=== PATIENT | male | born 1965 | race Caucasian/White ===

== ENCOUNTER 2021-03-29 17:09 | Emergency (ER) | payer OTHER ==
[2021-03-29 17:34] VITALS: O2SAT 98
--- NOTE | 2021-03-29 18:09 | ERPHSYRPT ---
- History of Present Illness Patient Subjective Stated Complaint: pt reports a knot on the back of his right upper thigh since the end of January. pt states that today he hit it on the couch and then noticed blood running down the back of his leg, pt states he then applied gentle pressure and dark blood shot 3 feet across the room. pt has been doing general wound care to the area daily. Triage Nursing Assessment: pt is aox3, pupils perrl, afebrile, resps easy and non labored, cap refill < 3 seconds, pt skin pink warm dry. reddened area with a darker center approx 4cm x 3.5cm to the posterior right upper thigh, no drainage noted. Timing/Duration: week(s) (6) Quality: painful Severity: moderate Location: extremities (Posterior aspect right thigh distally) Associated Symptoms: denies symptoms Hx Tetanus, Diphtheria Vaccination/Date Given: Yes Hx Influenza Vaccination/Date Given: Yes Hx Pneumococcal Vaccination/Date Given: No Immunizations Up to Date: Yes <BANDAR FRANZ - Last Filed: 03/29/21 19:12> <TANA LAUREANO - Last Filed: 03/29/21 21:30> - History of Present Illness Time Seen by Provider: 03/29/21 17:35 Physician History: Patient is a 55-year-old male who reports that approximately 6 weeks ago he noted a nodular area underneath the skin on the posterior aspect of the right thigh it was somewhat tender a week or so ago it began to have a black eschar and became more tender and enlarged today he had bleeding from it and when he pressed on the area had blood shoot across the room practically. It is tender it is sore it is enlarging. Should be noted that he has a history of willian coidosis. (BANDAR FRANZ) Allergies/Adverse Reactions: No Known Drug Allergies Allergy (Unverified 03/29/21 17:34) Travel Risk - International Travel Have you traveled outside of the country in past 3 weeks: No - Coronavirus Screening Are you exhibiting any of the following symptoms?: No Close contact with a COVID-19 positive Pt in past 14-21 Days: No - Vaccine Status Have you recieved a Covid-19 vaccination: No <BANDAR FRANZ - Last Filed: 03/29/21 19:12> - Review of Systems Constitutional: No Fever, No Chills Eyes: No Symptoms Ears, Nose, & Throat: No Symptoms Respiratory: No Cough, No Dyspnea Cardiac: No Chest Pain, No Edema, No Syncope Abdominal/Gastrointestinal: No Abdominal Pain, No Nausea, No Vomiting, No Diarrhea Genitourinary Symptoms: No Dysuria Musculoskeletal: No Back Pain, No Neck Pain Skin: Other (Suspected abscess), No Rash Neurological: No Dizziness, No Focal Weakness, No Sensory Changes Psychological: No Symptoms Endocrine: No Symptoms All Other Systems: Reviewed and Negative <BANDAR FRANZ Filed: 03/29/21 19:12> - Past Medical History Cardiac History: Hypertension Other Medical History: sarcoidosis - Past Surgical History Gastrointestinal: Cholecystectomy, Pancreatic Surgery Other Surgical History: NISAN procedure - Social History Smoking Status: Never smoker Drug Use: none Patient Lives Alone: No <BANDAR FRANZ Filed: 03/29/21 19:12> - Physical Exam General Appearance: mild distress Eye Exam: PERRL/EOMI, eyes nml inspection Ears, Nose, Throat Exam: normal ENT inspection, pharynx normal, moist mucous membranes Neck Exam: normal inspection, non-tender, supple, full range of motion Respiratory Exam: normal breath sounds Cardiovascular Exam: regular rate/rhythm, normal heart sounds Gastrointestinal/Abdomen Exam: soft, mass, No tenderness Back Exam: normal inspection, normal range of motion, No CVA tenderness, No vertebral tenderness Neurologic Exam: alert, oriented x 3 Skin Exam: other (There is a area on the posterior aspect distally of the right thigh which measures approximately 4 cm in diameter of induration with a central area a area of some black eschar with blood being expressed.) SpO2 Interpretation: normal SpO2: 98 O2 Delivery: Room Air <BANDAR FRANZ Filed: 03/29/21 19:12> - Nursing Vital Signs Nursing Vital Signs: Initial Vital Signs Temperature 98.0 F 03/29/21 17:16 Pulse Rate 85 03/29/21 17:16 Respiratory Rate 18 03/29/21 17:16 Blood Pressure 136/91 03/29/21 17:16 O2 Sat by Pulse Oximetry 98 03/29/21 17:16 Pain Scale Pain Intensity 5 - Course Nursing assessment & vital signs reviewed: Yes <MARIA MBANDAR Last Filed: 03/29/21 19:12> Ordered Tests: Active Orders 24 hr Category Date Time Status LOWER EXTREMITY WO CONTRAST [CT] Stat Exams 03/29/21 17:57 Taken CBC W DIFF Stat Lab 03/29/21 18:18 Completed CMP Stat Lab 03/29/21 18:18 Completed CULTURE,WOUND Stat Lab 03/29/21 21:23 Ordered Medication Summary Discontinued Medications Generic Name Dose Route Start Last Admin Trade Name Isaiahq PRN Reason Stop Dose Admin Ceftriaxone Sodium 1,000 mg 03/29/21 21:21 Rocephin 1000 Mg Inj IM 03/29/21 21:22 STAT ONE Trimethoprim/Sulfamethoxazole 1 tab 03/29/21 21:21 Bactrim Ds Tablet PO 03/29/21 21:22 STAT ONE Lab/Rad Data: Laboratory Result Diagrams 03/29/21 18:18 03/29/21 18:18 Laboratory Results 03/29/21 03/29/21 Range/Units 18:18 18:18 WBC 6.9 (4.0-10.5) K/mm3 RBC 4.43 (4.1-5.6) M/mm3 Hgb 13.8 (12.5-18.0) gm/dl Hct 39.8 L (42-50) % MCV 89.8 (78-100) fl MCH 31.2 (26-32) pg MCHC 34.7 (32-36) g/dl RDW 14.9 H (11.5-14.0) % Plt Count 158 (150-450) K/mm3 MPV 8.4 (7.5-11.0) fl Gran % 76.4 H (36.0-66.0) % Eos # (Auto) 0.19 (0-0.5) Absolute Lymphs (auto) 0.63 L (1.0-4.6) Absolute Monos (auto) 0.78 (0.0-1.3) Lymphocytes % 9.2 L (24.0-44.0) % Monocytes % 11.3 (0.0-12.0) % Eosinophils % 2.8 (0.00-5.0) % Basophils % 0.3 (0.0-0.4) % Absolute Granulocytes 5.26 (1.4-6.9) Basophils # 0.02 (0-0.4) Sodium 140 (137-145) mmol/L Potassium 4.4 (3.5-5.1) mmol/L Chloride 101 (98-107) mmol/L Carbon Dioxide 28 (22-30) mmol/L Anion Gap 15.0 (5-15) MEQ/L BUN 17 (9-20) mg/dL Creatinine 1.50 H (0.66-1.25) mg/dL Estimated GFR 51.8 ML/MIN Glucose 93 (74-106) mg/dL Calcium 10.1 (8.4-10.2) mg/dL Total Bilirubin 1.00 (0.2-1.3) mg/dL AST 38 (17-59) U/L ALT 37 (0-50) U/L Alkaline Phosphatase 70 (38-126) U/L Serum Total Protein 8.4 H (6.3-8.2) g/dL Albumin 4.8 (3.5-5.0) g/dL - Progress Progress: improved, pain not gone completely, re-examined Counseled pt/family regarding: lab results, diagnosis, need for follow-up, rad results <TANA LAUREANO - Last Filed: 03/29/21 21:30> - Progress Progress Note: 03/29/21 21:24 CAT scan of the right lower extremity without contrast shows mild subcutaneous e manjit no well-defined drainable subcutaneous abscess. Findings consistent with cellulitis (TANA LAUREANO) - Departure Departure Disposition: Home <BANDAR FRANZ - Last Filed: 03/29/21 19:12> - Departure Departure Disposition: Home Critical Care Time: No <TANA LAUREANO - Last Filed: 03/29/21 21:30> - Departure Clinical Impression: Cellulitis of right leg Condition: Stable Referrals: DOCTOR,NO FAMILY [Primary Care Provider] - Additional Instructions: Keep site clean daily with soap and water. Do not use ointments lotions or creams. May use sitz bath's twice a day with warm soapy water or warm Epson salt water. After washing dry the area and cover with bandage daily. Take your medication as prescribed. Follow-up with your primary care physician for further management. Prescriptions: Smz/Tmp Ds Tablet [Bactrim Ds Tablet] 1 udtab PO BID #14 tablet
[2021-03-29 18:21] LABS: Absolute Neutrophil Ct (ANC) 5.26 (1.4-6.9); BASOPHIL % 0.3 % (0.0-0.4); Basophil (Absolute #) 0.02 (0-0.4); Eosinophil % 2.8 % (0.00-5.0); Eosinophil (Absolute #) 0.19 (0-0.5); Hematocrit 39.8 % (42-50); Hemoglobin 13.8 gm/dl (12.5-18.0); Lymphocyte (Absolute #) 0.63 (1.0-4.6); Lymphocytes % 9.2 % (24.0-44.0); Mean Cell Volume 89.8 fl (78-100); Mean Corpuscular Hemoglobin 31.2 pg (26-32); Mean Corpuscular Hgb Concent. 34.7 g/dl (32-36); Mean Platelet Volume 8.4 fl (7.5-11.0); Monocyte (Absolute #) 0.78 (0.0-1.3); Monocytes % 11.3 % (0.0-12.0); Neutrophil % 76.4 % (36.0-66.0); Platelet Count 158 K/mm3 (150-450); Red Blood Count 4.43 M/mm3 (4.1-5.6); Red Cell Distribution Width 14.9 % (11.5-14.0); White Blood Count 6.9 K/mm3 (4.0-10.5)
[2021-03-29 18:32] LABS: ALBUMIN 4.8 g/dL (3.5-5.0); Calcium 10.1 mg/dL (8.4-10.2); Creatinine 1 1.5 mg/dL (0.66-1.25); EST GLOMERULAR FILTRATION RATE 51.8 ML/MIN; Potassium 4.4 mmol/L (3.5-5.1); Total Protein 8.4 g/dL (6.3-8.2)
[2021-03-29 20:56] VITALS: BP 127/86; PULSE 74
[2021-03-29] MEDS ORDERED: BACTRIM DS TABLET PO ONE ×2 (21:21→21:52)
[2021-03-29] MEDS ORDERED: Rocephin 1000 MG INJ IM ONE (21:21)
[2021-03-29] MEDS ORDERED: Rocephin 1000 MG INJ ONE (21:52)
[2021-03-29] MEDS ORDERED: XYLOCAINE 2% HCL 20 ML MDV ONE (21:52)
--- NOTE | 2021-03-30 06:43 | XRAY ---
Indication: Posterior lower femur abscess 3 weeks. Multiple contiguous axial images obtained through the right femur without contrast to include the hip and knee joint. Sagittal and coronal reformatted images obtained. Cutaneous BB placed over region of interest. Comparison: None Posterior cutaneous BB is seen distally just above the knee where there is underlying cutaneous/subcutaneous induration favoring cellulitis. No focal walled off fluid collection or subcutaneous emphysema. Remaining noncontrasted soft tissues including visualized pelvic contents are unremarkable. Major arteries and veins are normal in course and caliber. Osseous structures intact without suspicious bony lesions or osseous destructive process. Right hip and right knee intact without large effusion. Impression: Small focus of cellulitis involving the posterior distal leg. No underlying focal abscess. Comment: Preliminary interpretation was made by [facility]. No critical discrepancy.
== END 2021-03-29 22:17 | disposition home or self-care (01) ==
LOC: ED 17:09
DX: L03.115 Cellulitis of right lower limb (principal); I10 Essential (primary) hypertension
CPT/HCPCS: 36415; 73700; 80053; 85025; 87070; 96372; 99284; J0696; A9270-GY

== ENCOUNTER 2022-04-09 14:34 | Emergency (ER) | payer OTHER ==
[2022-04-09 16:16] LABS: Absolute Neutrophil Ct (ANC) 2.49 x10^3/uL (1.4-6.9); Basophil (Absolute #) 0.02 x10^3/uL (0-0.4); Eosinophil % 0.6 % (0.00-5.0); Eosinophil (Absolute #) 0.02 x10^3/uL (0-0.5); Hematocrit 41.3 % (42-50); Lymphocyte (Absolute #) 0.15 x10^3/uL (1.0-4.6); Lymphocytes % 4.7 % (24.0-44.0); Mean Cell Volume 91.8 fL (78-100); Mean Corpuscular Hemoglobin 31.1 pg (26-32); Mean Corpuscular Hgb Concent. 33.9 g/dL (32-36); Monocyte (Absolute #) 0.51 x10^3/uL (0.0-1.3); Monocytes % 15.9 % (0.0-12.0); Neutrophil % 77.6 % (36.0-66.0); Platelet Count 124 x10^3/uL (150-450); Red Cell Distribution Width 14.6 % (11.5-14.0); White Blood Count 3.2 x10^3/uL (4.0-10.5)
--- NOTE | 2022-04-09 16:26 | XRAY ---
Indication: Fever, cough, short of breath, and headache. Positive Covid 19. Comparison: None Portable chest demonstrates minimal inferior right upper lobe discoid atelectasis/scarring. Remaining heart and lungs unremarkable. Bony thorax intact with mild degenerative changes.
[2022-04-09 16:27] LABS: ALBUMIN 4.8 g/dL (3.5-5.0); ANION GAP 16.6 MEQ/L (5-15); BILIRUBIN,TOTAL 1.7 mg/dL (0.2-1.3); Calcium 9.8 mg/dL (8.4-10.2); Creatinine 1 1.89 mg/dL (0.66-1.25); EST GLOMERULAR FILTRATION RATE 39.6 ML/MIN; Potassium 4.3 mmol/L (3.5-5.1); Total Protein 8.5 g/dL (6.3-8.2)
[2022-04-09 16:29] LABS: INFLUENZA A NEGATIVE (NEGATIVE); INFLUENZA B NEGATIVE (NEGATIVE); RESPIRATORY SYNCTIAL VIRUS NEGATIVE (Negative)
[2022-04-09 16:45] LABS: SARS-CoV-2 Xpert Express POSITIVE (NEGATIVE)
[2022-04-09 16:56] LABS: Appearance CLEAR (CLEAR)
[2022-04-09 16:57] LABS: Bilirubin NEGATIVE (NEGATIVE); Dipstick done @ ? MAIN LAB; Glucose NEGATIVE (NEGATIVE); Ketones SMALL-15 (NEGATIVE); Nitrite NEGATIVE (NEGATIVE); Ph 5.5 (5-6); Protein,Urine Dip 100 (Negative); RBC NEGATIVE Ery/ul (0-5); Specific Gravity >=1.030 (1.005-1.025); Urobilinogen 1 mg/dL (0-1)
[2022-04-09] MEDS ORDERED: Sodium Chloride 0.9% 1000 ML 1,000 ML IV STA (17:03)
[2022-04-09 17:06] LABS: Hyaline Casts 0-2 /LPF (0-2); Mucus SLIGHT /HPF (NEGATIVE); RBC 0-2 /HPF (0-2); WBC 0-2 /HPF (0-5)
[2022-04-09] MEDS ORDERED: Sodium Chloride 0.9% 1000 ML 1,000 ML ONE (17:06)
[2022-04-09] MEDS ORDERED: Vibramycin 100 MG PO ONE (17:24)
[2022-04-09] MEDS ORDERED: Vibramycin 100 MG ONE (17:33)
[2022-04-09 17:59] LABS: Urine Cultured Indicated? NO
[2022-04-09 18:24] VITALS: BP 129/85; PULSE 89; O2SAT 96
[2022-04-09] MEDS ORDERED: Decadron 4 MG INJ IV ONE (18:36)
--- NOTE | 2022-04-09 18:43 | ERPHSYRPT ---
- History of Present Illness Time Seen by Provider: 04/09/22 14:37 Source: patient Exam Limitations: no limitations Patient Subjective Stated Complaint: Pt states "I have covid. I have had a high fever, I do not feel well, my throat is killing me." Triage Nursing Assessment: PT presented alert and oriented X 3, skin wpd pt ambulates with an upright steady gait, able to speak in clear full sentences pt in no apaprent respiratory distress. Physician History: 56-year-old male with history of sarcoidosis in the past currently not on any medication, CKD presented in the ER with chief complaint of flulike symptoms for the last 3 to 4 days, was tested positive for COVID-19 last night. Patient reports having a fever with chills with a T-max of 104 yesterday, responding to Tylenol. Also report dry to wet cough with soreness all over the chest, sore throat, congestion and generalized body aches along with fatigue tiredness and lack of energy. Denies any difficulty breathing. Mild nausea occasionally but no vomiting or diarrhea reported. Timing/Duration: day(s) (3), gradual onset, worse Cough Quality/Degree: moderate, dry cough Modifying Factors: Worsens With: coughing Associated Symptoms: fever, chills, chest pain/soreness, cough, headache, muscle aches, nasal congestion, nasal drainage, sore throat Allergies/Adverse Reactions: No Known Drug Allergies Allergy (Verified 04/09/22 14:45) Hx Tetanus, Diphtheria Vaccination/Date Given: Yes Hx Influenza Vaccination/Date Given: Yes Hx Pneumococcal Vaccination/Date Given: No Immunizations Up to Date: Yes Travel Risk - International Travel Have you traveled outside of the country in past 3 weeks: No - Coronavirus Screening Are you exhibiting any of the following symptoms?: Yes Symptoms: Fever, Cough: New Onset Close contact with a COVID-19 positive Pt in past 14-21 Days: Yes - Vaccine Status Have you recieved a Covid-19 vaccination: No - Review of Systems Constitutional: Fever, Chills, Fatigue, Weakness Eyes: No Symptoms Ears, Nose, & Throat: Nose Congestion, Throat Pain, Throat Swelling Respiratory: Cough Cardiac: No Edema, No Palpitations Abdominal/Gastrointestinal: Nausea Genitourinary Symptoms: No Symptoms Musculoskeletal: Myalgias Skin: No Symptoms Neurological: Headache Psychological: No Symptoms Hematologic/Lymphatic: No Symptoms Immunological/Allergic: No Symptoms - Past Medical History Pertinent Past Medical History: Yes Cardiac History: Hypertension Other Medical History: sarcoidosis - Past Surgical History Past Surgical History: Yes Gastrointestinal: Cholecystectomy, Pancreatic Surgery Other Surgical History: NISAN procedure - Social History Smoking Status: Never smoker Exposure to second hand smoke: No Drug Use: none Patient Lives Alone: No - Nursing Vital Signs Nursing Vital Signs: Initial Vital Signs Temperature 98.3 F 04/09/22 14:39 Pulse Rate 105 H 04/09/22 14:39 Respiratory Rate 22 04/09/22 14:39 Blood Pressure 134/89 04/09/22 14:39 O2 Sat by Pulse Oximetry 97 04/09/22 14:39 Pain Scale Pain Intensity 6 - Physical Exam General Appearance: no apparent distress Eye Exam: PERRL/EOMI, eyes nml inspection Ears, Nose, Throat Exam: moist mucous membranes, pharyngeal erythema Neck Exam: normal inspection, non-tender, supple, full range of motion Respiratory Exam: normal breath sounds, lungs clear Cardiovascular Exam: normal heart sounds, tachycardia Gastrointestinal/Abdomen Exam: soft, normal bowel sounds, No tenderness Back Exam: normal inspection, normal range of motion Extremity Exam: normal inspection, normal range of motion, pelvis stable Neurologic Exam: alert, oriented x 3, cooperative, tax adjuster II-XII nml as tested Skin Exam: normal color SpO2 Interpretation: normal SpO2: 96 O2 Delivery: Room Air Ordered Tests: Active Orders 24 hr Category Date Time Status Placement Secretary STAT Care 04/09/22 15:11 Active CHEST 1 VIEW (PORTABLE) Stat Exams 04/09/22 15:11 Completed BLOOD CULTURE Stat Lab 04/09/22 15:41 Received CBC W DIFF Stat Lab 04/09/22 15:30 Completed CMP Stat Lab 04/09/22 15:30 Completed Lactic Acid Stat Lab 04/09/22 15:50 Completed PROCALCITONIN Stat Lab 04/09/22 15:41 Completed TROPONIN Q3H Lab 04/09/22 15:15 Completed TROPONIN Q3H Lab 04/09/22 18:15 Ordered TROPONIN Q3H Lab 04/09/22 21:15 Ordered TROPONIN Q3H Lab 04/10/22 00:15 Ordered UA W/RFX CULTURE Stat Lab 04/09/22 16:50 Completed Medication Summary Discontinued Medications Generic Name Dose Route Start Last Admin Trade Name Freq PRN Reason Stop Dose Admin Dexamethasone Sodium Phosphate 8 mg 04/09/22 18:36 Dexamethasone Sod Phosphate 4 Mg/Ml Ml IV 04/09/22 18:37 STAT ONE Doxycycline Hyclate 100 mg 04/09/22 17:24 04/09/22 17:33 Doxycycline Hyclate 100 Mg Tablet PO 04/09/22 17:25 100 mg STAT ONE Administration Doxycycline Hyclate Confirm 04/09/22 17:33 Doxycycline Hyclate 100 Mg Tablet Administered 04/09/22 17:34 Dose 100 mg .ROUTE .STK-MED ONE Sodium Chloride 1,000 mls @ 999 mls/hr 04/09/22 17:03 04/09/22 18:19 Sodium Chloride 0.9% 1000 Ml IV 04/09/22 18:03 Infused .Q1H1M STA Infusion Sodium Chloride Confirm 04/09/22 17:06 Sodium Chloride 0.9% 1000 Ml Administered 04/09/22 17:07 Dose 1,000 mls @ ud .ROUTE .STK-MED ONE Lab/Rad Data: Laboratory Result Diagrams 04/09/22 15:30 04/09/22 15:30 Laboratory Results 04/09/22 04/09/22 04/09/22 Range/Units 16:50 15:50 15:41 WBC (4.0-10.5) x10^3/uL RBC (4.1-5.6) x10^6/uL Hgb (12.5-18.0) g/dL Hct (42-50) % MCV (78-100) fL MCH (26-32) pg MCHC (32-36) g/dL RDW (11.5-14.0) % Plt Count (150-450) x10^3/uL MPV (7.5-11.0) fL Gran % (36.0-66.0) % Immature Gran % (Auto) (0.00-0.4) % Nucleat RBC Rel Count (0.00-0.1) % Eos # (Auto) (0-0.5) x10^3/uL Immature Gran # (Auto) (0.00-0.03) x10^3u/L Absolute Lymphs (auto) (1.0-4.6) x10^3/uL Absolute Monos (auto) (0.0-1.3) x10^3/uL Absolute Nucleated RBC (0.00-0.01) x10^3u/L Lymphocytes % (24.0-44.0) % Monocytes % (0.0-12.0) % Eosinophils % (0.00-5.0) % Basophils % (0.0-0.4) % Absolute Granulocytes (1.4-6.9) x10^3/uL Basophils # (0-0.4) x10^3/uL Sodium (137-145) mmol/L Potassium (3.5-5.1) mmol/L Chloride (98-107) mmol/L Carbon Dioxide (22-30) mmol/L Anion Gap (5-15) MEQ/L BUN (9-20) mg/dL Creatinine (0.66-1.25) mg/dL Estimated GFR ML/MIN Glucose (74-106) mg/dL Lactic Acid 1.5 (0.4-2.0) Calcium (8.4-10.2) mg/dL Total Bilirubin (0.2-1.3) mg/dL AST (17-59) U/L ALT (0-50) U/L Alkaline Phosphatase (38-126) U/L Troponin I (0.000-0.034) ng/mL Serum Total Protein (6.3-8.2) g/dL Albumin (3.5-5.0) g/dL Procalcitonin 0.419 H (0.030-0.080) ng/mL Urinalys Dipstick Clnc MAIN LAB Urine Color DARK YELLOW (YELLOW) Urine Appearance CLEAR (CLEAR) Urine pH 5.5 (5-6) Ur Specific [place] >=1.030 (1.005-1.025) POC Urine Protein Conf 100 (Negative) Urine Ketones SMALL-15 (NEGATIVE) Urine Nitrite NEGATIVE (NEGATIVE) Urine Bilirubin NEGATIVE (NEGATIVE) Urine Urobilinogen 1 (0-1) mg/dL Urine Leukocytes NEGATIVE (NEGATIVE) Urine WBC (Auto) 0-2 (0-5) /HPF Urine RBC (Auto) 0-2 (0-2) /HPF U Hyaline Cast (Auto) 0-2 (0-2) /LPF U Epithel Cells (Auto) Not Reportable Urine Bacteria (Auto) NONE (NEGATIVE) /HPF Urine RBC NEGATIVE (0-5) Ari/ul Urine Mucus (Auto) SLIGHT (NEGATIVE) /HPF Ur Culture Indicated? NO Urine Glucose NEGATIVE (NEGATIVE) mg/dL Influenza Type A Ag (NEGATIVE) Influenza Type B Ag (NEGATIVE) RSV (PCR) (Negative) SARS-CoV-2 (PCR) (NEGATIVE) 04/09/22 04/09/22 04/09/22 Range/Units 15:30 15:30 15:30 WBC 3.2 L (4.0-10.5) x10^3/uL RBC 4.50 (4.1-5.6) x10^6/uL Hgb 14.0 (12.5-18.0) g/dL Hct 41.3 L (42-50) % MCV 91.8 (78-100) fL MCH 31.1 (26-32) pg MCHC 33.9 (32-36) g/dL RDW 14.6 H (11.5-14.0) % Plt Count 124 L (150-450) x10^3/uL MPV 9.0 (7.5-11.0) fL Gran % 77.6 H (36.0-66.0) % Immature Gran % (Auto) 0.6 H (0.00-0.4) % Nucleat RBC Rel Count 0.0 (0.00-0.1) % Eos # (Auto) 0.02 (0-0.5) x10^3/uL Immature Gran # (Auto) 0.02 (0.00-0.03) x10^3u/L Absolute Lymphs (auto) 0.15 L (1.0-4.6) x10^3/uL Absolute Monos (auto) 0.51 (0.0-1.3) x10^3/uL Absolute Nucleated RBC 0.00 (0.00-0.01) x10^3u/L Lymphocytes % 4.7 L (24.0-44.0) % Monocytes % 15.9 H (0.0-12.0) % Eosinophils % 0.6 (0.00-5.0) % Basophils % 0.6 (0.0-0.4) % Absolute Granulocytes 2.49 (1.4-6.9) x10^3/uL Basophils # 0.02 (0-0.4) x10^3/uL Sodium 139 (137-145) mmol/L Potassium 4.3 (3.5-5.1) mmol/L Chloride 101 (98-107) mmol/L Carbon Dioxide 26 (22-30) mmol/L Anion Gap 16.6 H (5-15) MEQ/L BUN 21 H (9-20) mg/dL Creatinine 1.89 H (0.66-1.25) mg/dL Estimated GFR 39.6 ML/MIN Glucose 91 (74-106) mg/dL Lactic Acid (0.4-2.0) Calcium 9.8 (8.4-10.2) mg/dL Total Bilirubin 1.70 H (0.2-1.3) mg/dL AST 48 (17-59) U/L ALT 42 (0-50) U/L Alkaline Phosphatase 76 (38-126) U/L Troponin I (0.000-0.034) ng/mL Serum Total Protein 8.5 H (6.3-8.2) g/dL Albumin 4.8 (3.5-5.0) g/dL Procalcitonin (0.030-0.080) ng/mL Urinalys Dipstick Clnc Urine Color (YELLOW) Urine Appearance (CLEAR) Urine pH (5-6) Ur Specific [place] (1.005-1.025) POC Urine Protein Conf (Negative) Urine Ketones (NEGATIVE) Urine Nitrite (NEGATIVE) Urine Bilirubin (NEGATIVE) Urine Urobilinogen (0-1) mg/dL Urine Leukocytes (NEGATIVE) Urine WBC (Auto) (0-5) /HPF Urine RBC (Auto) (0-2) /HPF U Hyaline Cast (Auto) (0-2) /LPF U Epithel Cells (Auto) Urine Bacteria (Auto) (NEGATIVE) /HPF Urine RBC (0-5) Ari/ul Urine Mucus (Auto) (NEGATIVE) /HPF Ur Culture Indicated? Urine Glucose (NEGATIVE) mg/dL Influenza Type A Ag NEGATIVE (NEGATIVE) Influenza Type B Ag NEGATIVE (NEGATIVE) RSV (PCR) NEGATIVE (Negative) SARS-CoV-2 (PCR) POSITIVE A (NEGATIVE) 04/09/22 Range/Units 15:15 WBC (4.0-10.5) x10^3/uL RBC (4.1-5.6) x10^6/uL Hgb (12.5-18.0) g/dL Hct (42-50) % MCV (78-100) fL MCH (26-32) pg MCHC (32-36) g/dL RDW (11.5-14.0) % Plt Count (150-450) x10^3/uL MPV (7.5-11.0) fL Gran % (36.0-66.0) % Immature Gran % (Auto) (0.00-0.4) % Nucleat RBC Rel Count (0.00-0.1) % Eos # (Auto) (0-0.5) x10^3/uL Immature Gran # (Auto) (0.00-0.03) x10^3u/L Absolute Lymphs (auto) (1.0-4.6) x10^3/uL Absolute Monos (auto) (0.0-1.3) x10^3/uL Absolute Nucleated RBC (0.00-0.01) x10^3u/L Lymphocytes % (24.0-44.0) % Monocytes % (0.0-12.0) % Eosinophils % (0.00-5.0) % Basophils % (0.0-0.4) % Absolute Granulocytes (1.4-6.9) x10^3/uL Basophils # (0-0.4) x10^3/uL Sodium (137-145) mmol/L Potassium (3.5-5.1) mmol/L Chloride (98-107) mmol/L Carbon Dioxide (22-30) mmol/L Anion Gap (5-15) MEQ/L BUN (9-20) mg/dL Creatinine (0.66-1.25) mg/dL Estimated GFR ML/MIN Glucose (74-106) mg/dL Lactic Acid (0.4-2.0) Calcium (8.4-10.2) mg/dL Total Bilirubin (0.2-1.3) mg/dL AST (17-59) U/L ALT (0-50) U/L Alkaline Phosphatase (38-126) U/L Troponin I < 0.012 (0.000-0.034) ng/mL Serum Total Protein (6.3-8.2) g/dL Albumin (3.5-5.0) g/dL Procalcitonin (0.030-0.080) ng/mL Urinalys Dipstick Clnc Urine Color (YELLOW) Urine Appearance (CLEAR) Urine pH (5-6) Ur Specific [place] (1.005-1.025) POC Urine Protein Conf (Negative) Urine Ketones (NEGATIVE) Urine Nitrite (NEGATIVE) Urine Bilirubin (NEGATIVE) Urine Urobilinogen (0-1) mg/dL Urine Leukocytes (NEGATIVE) Urine WBC (Auto) (0-5) /HPF Urine RBC (Auto) (0-2) /HPF U Hyaline Cast (Auto) (0-2) /LPF U Epithel Cells (Auto) Urine Bacteria (Auto) (NEGATIVE) /HPF Urine RBC (0-5) Ari/ul Urine Mucus (Auto) (NEGATIVE) /HPF Ur Culture Indicated? Urine Glucose (NEGATIVE) mg/dL Influenza Type A Ag (NEGATIVE) Influenza Type B Ag (NEGATIVE) RSV (PCR) (Negative) SARS-CoV-2 (PCR) (NEGATIVE) - Progress Progress: improved Air Movement: good Progress Note: 04/09/22 18:41 56-year-old is evaluated for flulike symptoms with positive COVID-19. CBC consistent with COVID, does have CKD with a creatinine of 1.89, given fluid bolus. Offered pain medication which she refused. Normal troponins. Chest x- ray showed right-sided atelectasis. Patient has elevated procalcitonin and I have given a dose of doxycycline here as patient probably getting superimposed bacterial infection in the lungs. Also started on Decadron and will give albuterol inhaler to use as needed. Do not think patient needs to be admitted, he is not tachypneic or tachycardic on reevaluation and maintaining oxygen saturation in upper 90s. Recommended outpatient follow-up. Discussed signs symptoms of worsening needing return to ER which he seems understanding. 04/09/22 18:45 He is offered Paxilovid which he declined. Blood Culture(s) Obtained: Yes Antibiotics given: Yes Counseled pt/family regarding: lab results, diagnosis, need for follow-up, rad results - Departure Departure Disposition: Home Clinical Impression: COVID-19 virus detected, Acute bronchitis Condition: Stable Critical Care Time: No Referrals: SEAN DHALIWAL MD [Primary Care Provider] - Follow up/PCP as directed (1-2 days for reevaluation) Instructions: Fever, Adult (DC) Additional Instructions: Follow contact/droplet precautions. Keep yourself well-hydrated. Follow-up with primary care for reevaluation. Return to ER for difficulty breathing, pe rsistent high-grade fever chills etc. Take Tylenol as needed. Do not take any NSAIDs like ibuprofen/Aleve etc. Prescriptions: Albuterol Sulfate [Albuterol Sulfate Hfa] 8.5 gm IH Q6H PRN 7 Days #1 inh PRN Reason: Cough Dexamethasone [Decadron] 6 mg PO DAILY #5 tablet Doxycycline Hyclate 100 mg [Vibramycin 100 MG] 100 mg PO BID #14 tab
[2022-04-09] MEDS ORDERED: Decadron 4 MG INJ ONE (18:44)
[2022-04-09 20:54] LABS: Slide Review 1 YES
== END 2022-04-09 18:59 | disposition home or self-care (01) ==
LOC: ED 14:34
DX: U07.1 COVID-19 (principal); J20.9 Acute bronchitis, unspecified; R50.9 Fever, unspecified; R05.9 Cough, unspecified; R07.89 Other chest pain; J02.9 Acute pharyngitis, unspecified; R09.81 Nasal congestion; M79.10 Myalgia, unspecified site; M53.83 Other specified dorsopathies, cervicothoracic region; I10 Essential (primary) hypertension; Z28.310 Unvaccinated for COVID-19; Z79.52 Long term (current) use of systemic steroids
CPT/HCPCS: 0241U; 36000; 36415; 71045; 80053; 81015; 83605; 84145; 84484; 85025; 87040; 93041; 96360; 96374; 99284; J1100; A9270-GY